=== PATIENT | male | born 1985 | race Caucasian/White ===

== ENCOUNTER 2022-08-11 18:00 | Emergency (ER) | payer BC, SELFPAY ==
[2022-08-11 18:07] VITALS: BP 136/89; PULSE 105; RESP 16; TEMP 36.4; O2SAT 98
[2022-08-11] MEDS: oxyCODONE 5 mg/Acetaminophen 325 mg TAB 2 TAB PO (19:35)
[2022-08-11] MEDS: Amoxicillin 875/Clav. 125 TAB PO (21:07)
[2022-08-11 21:08] VITALS: BP 144/91; PULSE 95; RESP 18; TEMP 36.2; O2SAT 95
--- NOTE | 2022-08-11 23:47 | ED.GENADUL_ITS ---
Discharge Plan Disposition Patient Disposition: Home Discharge Details Clinical Impression: Pilonidal cyst Primary Care Provider: None,None ED Provider: Pat Turner Home Meds and New Rx's Prescriptions: New amoxicillin-pot clavulanate 875-125 mg tablet 1 tab PO BID Qty: 20 0RF Continued acetaminophen [Pain Relief Regular Strength] 325 MG tablet 325 mg PO PRN PRN naproxen 500 MG tablet 500 mg PO BID Qty: 10 0RF Discharge Instructions Additional Instructions: Warm compresses bhupendra listed surgery for you to follow-up, if this becomes worse, I do recommend coming to the emergency department, 48-hour recheck is reassuring if this does not start draining or becomes fluctuant to touch Please take the antibiotic as prescribed Referrals: Niko Evans MD [ [facility] ST[facility]FF PHYSICIAN] - Discharge Data Discharge Date/Time-TO BE ENTERED AT DEPARTURE: 08/11/22 21:17 Medical Decision Making No fluctuance on exam, despite lack of fluctuance I did make an attempt to drain pilonidal cyst, unfortunately there was only a small amount of drainage noted with incision He has placed on antibiotics, surgical referral, and recheck in 48 hours recommended, he is nontoxic and no evidence of cellulitis He is encouraged to use warm compresses regularly He is given also a small amount of opiate analgesia with risk of addiction reviewed Medical Records Medical records reviewed: Yes I reviewed the patient's medical records. Lab Data Lab results reviewed: Yes I reviewed the patient's lab results. HPI General Date/Time Provider Initiated Documentation: 08/11/22 18:50 . HPI Narrative: This 36-year-old male presents with pilonidal cyst for the past few days. Denies fever or chills, history remotely of a pilonidal when he was a teenager, denies recurrence since that time. Denies any fever or chills. States exquisitely tender to sit. Denies any drainage from the affected area or history of illicit drug use Related Data Home Medications Medication Instructions Recorded Confirmed acetaminophen 325 mg tablet (Pain 325 mg PO PRN PRN 08/30/14 08/30/14 Relief Regular Strength) naproxen 500 mg tablet 500 mg PO BID #10 tabs 08/30/14 amoxicillin 875 mg-potassium 1 tab PO BID #20 tabs 08/11/22 clavulanate 125 mg tablet Previous Rx's Medication Instructions Recorded naproxen 500 mg tablet 500 mg PO BID #10 tabs 08/30/14 amoxicillin 875 mg-potassium 1 tab PO BID #20 tabs 08/11/22 clavulanate 125 mg tablet Allergies Allergy/AdvReac Type Severity Reaction Status Date / Time No Known Allergies Allergy Unverified 08/30/14 04:18 General Stated Complaint: Nk/Back Pain KAJAL: 4 PFSH All Active Problems (Updated 08/11/22 @ 20:49 by JOSIAH Graham) Pilonidal cyst (Acute) Medical History (Updated 08/11/22 @ 20:49 by JOSIAH Graham) Pilonidal cyst Social History Smoking/Tobacco Use Status: Never Smoking risk assessment performed?: Yes Alcohol Intake: current Alcohol Intake frequency: holidays/special occasions only Drug use: Rarely Substance use type: does not use and marijuana Do you feel safe at home: Yes Do you feel safe in your relationship?: Yes Exam Skin Other: Pilonidal cyst noted approximately 1 inch in diameter, no fluctuance, indurated, no drainage no evidence of rectal involvement Course Vital Signs Vital signs: Vital Signs Temperature 36.4 C L 08/11/22 18:07 Pulse 105 H 08/11/22 18:07 Respiratory Rate 16 08/11/22 18:07 Blood Pressure 136/89 08/11/22 18:07 Pulse Oximetry 98 08/11/22 18:07 Temperature 36.2 C L 08/11/22 21:08 Temperature Source Temporal Artery Scan 08/11/22 21:08 Pulse 95 H 08/11/22 21:08 Respiratory Rate 18 08/11/22 21:08 Respiratory Effort Normal, Non-Labored 08/11/22 18:11 Blood Pressure 144/91 H 08/11/22 21:08 Blood Pressure Position Sitting 08/11/22 18:07 Pulse Oximetry 95 08/11/22 21:08 Oxygen Delivery Method Room Air 08/11/22 21:08 Oxygen Flow Rate 0 08/11/22 21:08 Pain Level 6 08/11/22 19:35 Procedures Abscess I/D Site: Back Local Anesthetic: Lidocaine 1% Amount of anesthesia used (mL): 5 Technique: Needle Aspiration and Incised with #11 Blade Amount of fluid expressed (mL): 3 Irrigation: No Packing used?: None Complications: Pain
== END 2022-08-11 21:17 | disposition home or self-care (01) ==
PROVIDERS: Emergency Provider Physician Assistant
DX: L05.91 Pilonidal cyst without abscess (principal)
CPT/HCPCS: 10060